=== PATIENT | male | born 1985 | race Caucasian/White ===

== ENCOUNTER 2021-05-18 13:30 | Emergency (ER) | payer OTHER, SELFPAY ==
[2021-05-18 13:41] VITALS: BP 113/77; PULSE 87; RESP 16; TEMP 36.8; O2SAT 97; BMI 21.1
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
[2021-05-18 14:50] VITALS: BP 118/77; PULSE 82; RESP 16; O2SAT 97
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
== END 2021-05-18 15:56 | disposition home or self-care (01) ==
PROVIDERS: Emergency Provider Physician Assistant
DX: S06.0X0A Concussion without loss of consciousness, initial encounter (principal); S13.4XXA Sprain of ligaments of cervical spine, initial encounter; F17.210 Nicotine dependence, cigarettes, uncomplicated; V89.2XXA Person injured in unspecified motor-vehicle accident, traffic, initial encounter
CPT/HCPCS: 70450; 72125; 99282

== ENCOUNTER → 2023-06-29 12:36 | Outpatient (BNVA) | payer OTHER, SELFPAY | PROVIDERS: Visit Provider Emergency Medicine | DX: R19.7 Diarrhea, unspecified (principal); R05.9 Cough, unspecified | CPT/HCPCS: 87400 ==

== ENCOUNTER → 2024-03-09 07:22 | Outpatient (BNVA) | payer OTHER, SELFPAY | DX: B34.9 Viral infection, unspecified (principal) | CPT/HCPCS: 87880 ==